=== PATIENT | female | born 1950 | race African-American/Black ===

== ENCOUNTER 2024-01-17 22:39 | Emergency (ER) | payer MEDICARE ==
[~2024-01-17] VITALS: Ht 162.6 cm; Wt 139.7 kg
[2024-01-17 23:52] LABS: BASOPHILS % 0.7 % (0.0-1.0); EOSINOPHILS # (AUTO) 0.1 (0.0-0.4); EOSINOPHILS % 2.2 % (0.0-6.0); HEMATOCRIT 34.3 % (34.2-44.1); HEMOGLOBIN 12.1 g/dL (12.0-16.0); LYMPHOCYTES # (AUTO) 2.6 (1.0-3.2); LYMPHOCYTES % 44.7 % (18.0-39.1); MEAN CORPUSCULAR HEMOGLOBIN 30.7 pg (28-32); MEAN CORPUSCULAR HGB CONC 35.3 g/dL (31-35); MEAN CORPUSCULAR VOLUME 87.1 fL (81-99); MONOCYTES # (AUTO) 0.3 (0.2-0.8); MONOCYTES % 5.3 % (4.4-11.3); NEUTROPHILS # (AUTO) 2.7 (2.1-6.9); NEUTROPHILS % 46.8 % (38.7-80.0); PLATELET COUNT 195 x10e3/uL (140-360); RED BLOOD COUNT 3.94 x10e6/uL (3.6-5.1); WHITE BLOOD COUNT 5.82 x10e3/uL (4.8-10.8)
[2024-01-18 00:05] LABS: ALANINE AMINOTRANSFERASE 24 IU/L (0-55); ALBUMIN 3.6 g/dL (3.5-5.0); ALBUMIN/GLOBULIN RATIO 0.9 (0.8-2.0); ALKALINE PHOSPHATASE 71 IU/L (40-150); ANION GAP 16.4 mmol/L (8-16); BILIRUBIN,TOTAL 0.4 mg/dL (0.2-1.2); BLOOD UREA NITROGEN 26 mg/dL (7-26); BUN/CREATININE RATIO 13 (6-25); CALCIUM 9.3 mg/dL (8.4-10.2); CARBON DIOXIDE 19 mmol/L (22-29); CHLORIDE 109 mmol/L (98-107); CREATINE KINASE 219 IU/L (29-168); CREATININE, SERUM 1.95 mg/dL (0.57-1.11); EST GLOMERULAR FILTRATION RATE 26 ML/MIN (>=60); GLUCOSE 114 mg/dL (74-118); POTASSIUM 4.4 mmol/L (3.5-5.1); SODIUM 140 mmol/L (136-145); TOTAL PROTEIN 7.5 g/dL (6.5-8.1)
[2024-01-18 00:12] LABS: TROPONIN I < 0.05 ng/mL (0.0-0.40)
[2024-01-18] MEDS ORDERED: ACETAMINOPHEN 325 MG TAB ONE (00:20)
[2024-01-18] MEDS ORDERED: ONDANSETRON HCL INJ 2MG/ML 2ML 2 MG/ML VIAL ONE (00:41)
[2024-01-18] MEDS: ONDANSETRON HCL INJ 2MG/ML 2ML 2 MG/ML VIAL IV STA (02:31)
[2024-01-18] MEDS: ACETAMINOPHEN 325 MG TAB PO STA (02:32)
[2024-01-18 02:54] LABS: CREATINE KINASE 197 IU/L (29-168)
[2024-01-18 03:02] LABS: TROPONIN I < 0.001 ng/mL (0-0.300)
[2024-01-18] MEDS ORDERED: DIAZEPAM INJ 5 MG/ML 2 ML ONE (03:11)
[2024-01-18] MEDS: DIAZEPAM INJ 5 MG/ML 2 ML IV STA (03:15)
[2024-01-18 09:00] VITALS: PULSE 65; RESP 16; TEMP 97.9
[2024-01-18 09:24] VITALS: BP 136/66; PULSE 65; RESP 18; TEMP 97.9; O2SAT 98
== END 2024-01-18 09:20 | disposition home or self-care (01) ==
LOC: ER 22:53
DX: R06.02 Shortness of breath (principal); R07.9 Chest pain, unspecified; M79.602 Pain in left arm; N28.9 Disorder of kidney and ureter, unspecified; I10 Essential (primary) hypertension; Z11.52 Encounter for screening for COVID-19
CPT/HCPCS: 36415; 71045; 80053; 82550; 83690; 83880; 84484; 85025; 93005; 99284; J2405; J3360; U0002